=== PATIENT | female | born 1980 | race Two or more races ===

== ENCOUNTER 2016-10-28 13:16 | Emergency (ER) | payer OTHER ==
[2016-10-28 13:30] VITALS: BP 113/74; PULSE 75; TEMP 98; BMI 40.7
--- NOTE | 2016-10-28 13:30 | PDOC ---
History of Present Illness - General Chief Complaint: Ear Problem Stated Complaint: EAR PAIN Time Seen by Provider: 10/28/16 13:27 History Source: Patient Exam Limitations: No Limitations - History of Present Illness Initial Comments: CHIEF COMPLAINT: 36 y/o afebrile female with PMH seasonal allergies c/o right ear pain for over 2 weeks. HISTORY OF PRESENT ILLNESS: The patient states she saw her PCP on 10/14/16 with complaints of runny nose, watery eyes and right ear stuffiness. He prescribed her allergy medications (sudafed and claritin), which she was taking daily. She states all of her other symptoms have improved but her right ear pain has worsened and now behind her right ear hurts. She denies f/c, n/v/d, HARRIS, neck pain, discharge from right ear. Vital signs on arrival are within normal limits. REVIEW OF SYSTEMS: GENERAL/CONSTITUTIONAL: No fever/chills. No weakness. No weight change. HEAD, EYES, EARS, NOSE AND THROAT: No change in vision. +right ear pain. No sore throat. MUSCULOSKELETAL: No joint or muscle swelling or pain. No neck or back pain. SKIN: No rash or easy bruising. NEUROLOGIC: +right head pain. No headache, vertigo, loss of consciousness, or loss of sensation. PHYSICAL EXAM: GENERAL: The patient is awake, alert, and fully oriented, in no acute distress. She is well appearing and ambulatory. HEAD: Normal with no signs of trauma. Pain with palpation of right mastoid process EYES: Pupils equal, round and reactive to light, extraocular movements intact, sclera anicteric, conjunctiva clear. EARS: Canals and TMS normal b/l ears. No pain with manipulation of right tragus. No pre or post auricular lymphadenopathy. EXTREMITIES: Normal range of motion, no edema. NEUROLOGICAL: Normal speech, normal gait. SKIN: Warm, Dry, normal turgor, no rashes or lesions noted. Past History - Past Medical History Allergies/Adverse Reactions: Allergies Allergy/AdvReac Type Severity Reaction Status Date / Time shellfish derived Allergy Severe Swelling Verified 10/28/16 13:21 Home Medications: Ambulatory Orders Loratadine [Claritin] 10 mg PO PRN 10/28/16 Pseudoephedrine HCl [Nasal Decongestant] 30 mg PO PRN 10/28/16 Anemia: No Asthma: Yes Cancer: No Cardiac Disorders: No CVA: No COPD: No CHF: No Dementia: No Diabetes: No GI Disorders: No Disorders: No HTN: No Hypercholesterolemia: No Liver Disease: No Seizures: No Thyroid Disease: No - Reproductive History (#): 2 Para: 1 - Psycho/Social/Smoking Cessation Hx Anxiety: No Suicidal Ideation: No Smoking Status: No Smoking History: Never smoked Have you smoked in the past 12 months: No Number of Cigarettes Smoked Daily: 0 Information on smoking cessation initiated: No Hx Alcohol Use: No Drug/Substance Use Hx: No Substance Use Type: None Hx Substance Use Treatment: No *Physical Exam - Vital Signs Last Vital Signs Temp Pulse Resp BP Pulse Ox 98 F 75 18 113/74 100 10/28/16 13:21 10/28/16 13:21 10/28/16 13:21 10/28/16 13:21 10/28/16 13:21 Medical Decision Making - Medical Decision Making A/P: 36 y/o afebrile female with right ear pain and right mastoid tenderness. Plan is as follows: 1. hcg 2. CT of temporal bones hcg - negative CT scan of temporal bones IMPRESSION: Multiple right mastoid air cells at the tip of the mastoid are opacified. Intact septations. Intact cortex of the temporal bone no evidence of bony destructive changes. Intact cortex of right sigmoid sinus. Spoke with Dr. Tan and he would like to have basic labs drawn and he is going to examine the patient. Went to inform the patient of the plan and she was found to have left the ER. 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 Called the patient and left a voicemail for her to return to the ER as soon as possible. *DC/Admit/Observation/Transfer Diagnosis at time of Disposition: Earache on right - Discharge Dispostion Disposition: ELOPED Condition at time of disposition: Stable - Referrals Referrals: Billy Rivera MD [Primary Care Provider] -
== END 2016-10-28 15:55 | disposition home or self-care (01) ==
LOC: JERFT 13:16 → JER 13:16 → JERFT 15:55
DX: H92.01 Otalgia, right ear (principal); J30.2 Other seasonal allergic rhinitis
CPT/HCPCS: 70480-TC; 84703; 99281-25

== ENCOUNTER 2016-10-28 18:03 | Emergency (ER) | payer OTHER ==
[2016-10-28 18:09] VITALS: BP 112/71; PULSE 107; TEMP 97.9; BMI 40.7
--- NOTE | 2016-10-28 18:26 | PDOC ---
History of Present Illness - General Chief Complaint: Revisit,Radiology Variance Stated Complaint: EAR PROBLEM Time Seen by Provider: 10/28/16 18:17 History Source: Patient Exam Limitations: No Limitations - History of Present Illness Initial Comments: CHIEF COMPLAINT: 36 y/o afebrile female with PMH seasonal allergies c/o right ear pain for over 2 weeks. The patient was seen earlier today by myself and eloped. I called her back in and she is here for blood work to r/o leukocytosis. HISTORY OF PRESENT ILLNESS: The patient states she saw her PCP on 10/14/16 with complaints of runny nose, watery eyes and right ear stuffiness. He prescribed her allergy medications (sudafed and claritin), which she was taking daily. She states all of her other symptoms have improved but her right ear pain has worsened and now behind her right ear hurts. She denies f/c, n/v/d, HARRIS, neck pain, discharge from right ear. Vital signs on arrival are within normal limits. REVIEW OF SYSTEMS: GENERAL/CONSTITUTIONAL: No fever/chills. No weakness. No weight change. HEAD, EYES, EARS, NOSE AND THROAT: No change in vision. +right ear pain. No sore throat. MUSCULOSKELETAL: No joint or muscle swelling or pain. No neck or back pain. SKIN: No rash or easy bruising. NEUROLOGIC: +right head pain. No headache, vertigo, loss of consciousness, or loss of sensation. PHYSICAL EXAM: GENERAL: The patient is awake, alert, and fully oriented, in no acute distress. She is well appearing and ambulatory. HEAD: Normal with no signs of trauma. Pain with palpation of right mastoid process EYES: Pupils equal, round and reactive to light, extraocular movements intact, sclera anicteric, conjunctiva clear. EARS: Canals and TMS normal b/l ears. No pain with manipulation of right tragus. No pre or post auricular lymphadenopathy. EXTREMITIES: Normal range of motion, no edema. NEUROLOGICAL: Normal speech, normal gait. SKIN: Warm, Dry, normal turgor, no rashes or lesions noted. Past History - Past Medical History Allergies/Adverse Reactions: Allergies Allergy/AdvReac Type Severity Reaction Status Date / Time shellfish derived Allergy Severe Swelling Verified 10/28/16 18:07 Home Medications: Ambulatory Orders Amox-Tr/K Cl [Augmentin - 875Mg Tablet] 1 tab PO BID #20 tablet 10/28/16 Loratadine [Claritin] 10 mg PO PRN 10/28/16 Pseudoephedrine HCl [Nasal Decongestant] 30 mg PO PRN 10/28/16 Anemia: No Asthma: Yes Cancer: No Cardiac Disorders: No CVA: No COPD: No CHF: No Dementia: No Diabetes: No GI Disorders: No Disorders: No HTN: No Hypercholesterolemia: No Liver Disease: No Seizures: No Thyroid Disease: No - Reproductive History (#): 2 Para: 1 - Psycho/Social/Smoking Cessation Hx Anxiety: No Suicidal Ideation: No Smoking Status: No Smoking History: Never smoked Have you smoked in the past 12 months: No Number of Cigarettes Smoked Daily: 0 Information on smoking cessation initiated: No Hx Alcohol Use: No Drug/Substance Use Hx: No Substance Use Type: None Hx Substance Use Treatment: No *Physical Exam - Vital Signs Last Vital Signs Temp Pulse Resp BP Pulse Ox 97.9 F 107 H 18 112/71 100 10/28/16 18:07 10/28/16 18:07 10/28/16 18:07 10/28/16 18:07 10/28/16 18:07 ED Treatment Course - LABORATORY CBC & Chemistry Diagram: 10/28/16 18:17 Medical Decision Making - Medical Decision Making A/P: 36 y/o afebrile female returned after eloping before with right mastoid tenderness and earache. CT scan showed air cells in right mastoid region. Will do basic labs. If no leukocytosis will treat for otitis media. No leukocytosis. Discussed the case with Dr. Tan and he feels she can be treated outpatient for otitis media with close follow up. Informed the patient of the plan. Suggested she call Dr. Ruiz tomorrow to schedule follow up appointment, take entire course of Augmentin, and return to the ER immediately with any worsening or concerning symptoms, including fever, dizziness or worsening of pain. The patient verbalizes understanding of all instructions, has no further questions and is awaiting discharge. *DC/Admit/Observation/Transfer Diagnosis at time of Disposition: Otitis media Qualifiers: Otitis media type: suppurative Laterality: right Chronicity: acute Recurrence: not specified as recurrent Spontaneous tympanic membrane rupture: without spontaneous rupture Qualified Code(s): H66.001 - Acute suppurative otitis media without spontaneous rupture of ear drum, right ear Mastoid pain Qualifiers: Laterality: right Qualified Code(s): H92.01 - Otalgia, right ear - Discharge Dispostion Disposition: HOME Condition at time of disposition: Good - Prescriptions Prescriptions: Amox-Tr/K Cl [Augmentin - 875Mg Tablet] 1 tab PO BID #20 tablet - Referrals Referrals: Damian Rivera MD [Primary Care Provider] - Melecio Ruiz MD [Staff Physician] - Call tomorrow - Patient Instructions Printed Discharge Instructions: DI for Otitis Media (Middle Ear Infection)- Child Additional Instructions: Discharge Instructions: -Take antibiotics as prescribed and complete entire 10 days -Call Dr. Ruiz tomorrow to schedule follow up appointment -Return to the ER immediately if you experience any worsening or concerning symptoms, including fever, dizziness or worsening of pain.
[2016-10-28 18:55] LABS: BASOPHIL 0.5 % (0-2.0); EOSINOPHIL 2.5 % (0-4.5); MCH 29.8 pg (25.7-33.7); MCHC 33.5 g/dl (32.0-36.0); MEAN PLT VOLUME 7.8 fl (7.5-11.1); NEUTROPHILS 60.3 % (42.8-82.8); PLATELET COUNT 378 K/MM3 (134-434); RDW 13.1 % (11.6-15.6); WHITE BLOOD COUNT 8.3 K/mm3 (4.0-10.0)
[2016-10-28 19:29] LABS: ALBUMIN 3.9 g/dl (3.4-5.0); ALK PHOS 66 U/L (45-117); ANION GAP 11 (8-16); BILIRUBIN,TOTAL 0.3 mg/dL (0.2-1.0); CALCIUM 9.3 mg/dL (8.5-10.1); CO2 27 mmol/L (21-32); CREATININE 0.8 mg/dL (0.55-1.02); GLUCOSE,RANDOM 118 mg/dL (74-106); SGOT/AST 32 U/L (15-37); SGPT/ALT 49 U/L (12-78); TOT PROT 7.5 g/dl (6.4-8.2)
== END 2016-10-28 19:24 | disposition home or self-care (01) ==
LOC: JERFT 18:03
DX: H66.001 Acute suppurative otitis media without spontaneous rupture of ear drum, right ear (principal)
CPT/HCPCS: 36415; 80053; 85025; 99281-25

== ENCOUNTER 2017-02-27 15:20 | Emergency (ER) | payer OTHER ==
[2017-02-27 15:28] VITALS: TEMP 98.3; BMI 40.7
[2017-02-27] MEDS ORDERED: SODIUM CHLORIDE 0.9% 1000 ML INFUS.BAG IV ONE (16:13)
[2017-02-27 16:36] LABS: BASOPHIL 0.4 % (0-2.0); MCH 30.3 pg (25.7-33.7); MCHC 33.8 g/dl (32.0-36.0); MEAN CELL VOLUME 89.6 fl (80-96); MEAN PLT VOLUME 8.3 fl (7.5-11.1); NEUTROPHILS 85.3 % (42.8-82.8); PLATELET COUNT 375 K/MM3 (134-434); RDW 13.4 % (11.6-15.6); WHITE BLOOD COUNT 15.7 K/mm3 (4.0-10.0)
--- NOTE | 2017-02-27 16:46 | PDOC ---
Attending Attestation - Resident Resident Name: Dada Weir - HPI HPI: 02/27/17 16:44 36 yo female has c/o profuse watery diarrhea since 9:30 this morning. Denies vomiting or fever but has c/o chills. she denies any surgeries. Reviewing old chart found she had an ultrasound in past year that revealed cholelithiasis 02/27/17 21:58 - Physicial Exam PE: 02/27/17 16:46 overweight 36 yo female has epigastric discomfort and profuse watery stools today abd epigastric discomfort lungs cta b/l cvr [id number] extremities- from, no deformities,no edema neuro no gross focal neuro deficits 02/27/17 21:58 - Medical Decision Making 02/27/17 16:48 cbc,comp,lipase,ekg,imaging pending 02/27/17 21:37 Patient's chemistries are unremarkable. Abdominal ultrasound shows some cholelithiasis with possible sludge within the lumen of the gallbladder. This is a similar finding to the ultrasound she had previously. -STOOL sent for C. difficile 02/27/17 21:58 Patient states that she has not had any loose stool and carotid. She still has some mild epigastric discomfort and she is requesting Pepcid Plan patient will be discharged with Pepcid. Follow up with her pcp who is Dr. Godinez
--- NOTE | 2017-02-27 16:56 | PDOC ---
History of Present Illness - General Chief Complaint: Pain Stated Complaint: ABD PAIN Time Seen by Provider: 02/27/17 15:36 History Source: Patient Exam Limitations: No Limitations - History of Present Illness Initial Comments: 02/27/17 16:34 The patient is a 36F with a PMH of gallstones who presents to the ED with a 3 hour hx of diarrhea and abdominal pain. The patient states that she has had 15 episodes of watery, nonbloody diarrhea that is yellow colored since 1300 today. She states that she has taken 2 tums and this has not helped her pain. She has not had any sick contacts, no recent antibiotics, no recent travel. The abdominal pain is epigastric, radiates laterally b/l and to her chest. She describes it as sharp, dull, pressure, throbbing, and stabbing. Nothing makes it better or worse. She has no hx of colonscopies or EGDs. LMP: "December but it always skips" Soc: none Past History - Past Medical History Allergies/Adverse Reactions: Allergies Allergy/AdvReac Type Severity Reaction Status Date / Time shellfish derived Allergy Severe Swelling Verified 02/27/17 15:28 Home Medications: Ambulatory Orders Famotidine [Pepcid] 20 mg PO DAILY #14 tablet 02/27/17 Anemia: No Asthma: Yes Cancer: No Cardiac Disorders: No CVA: No COPD: No CHF: No Dementia: No Diabetes: No GI Disorders: No Disorders: No HTN: No Hypercholesterolemia: No Liver Disease: No Seizures: No Thyroid Disease: No - Reproductive History (#): 2 Para: 1 - Psycho/Social/Smoking Cessation Hx Anxiety: No Suicidal Ideation: No Smoking Status: No Smoking History: Never smoked Have you smoked in the past 12 months: No Number of Cigarettes Smoked Daily: 0 Hx Alcohol Use: No Drug/Substance Use Hx: No Substance Use Type: None Hx Substance Use Treatment: No Review of Systems - Review of Systems Able to Perform ROS?: Yes Is the patient limited Mohawk proficient: No Constitutional: Yes: Chills, Weakness. No: Fever Respiratory: Yes: Shortness of Breath. No: Cough, Wheezing, Productive cough Cardiac (ROS): Yes: Chest Pain ABD/GI: Yes: Diarrhea, Nausea, Other (abd pain). No: Vomiting : No: Burning, Dysuria, Discharge Neurological: Yes: Weakness. No: Headache, Numbness, Tingling *Physical Exam - Vital Signs Last Vital Signs Temp Pulse Resp BP Pulse Ox 98.3 F 100 H 20 139/62 97 02/27/17 15:26 02/27/17 15:26 02/27/17 15:26 02/27/17 15:26 02/27/17 15:26 - Physical Exam General Appearance: Yes: Nourished, Obese HEENT: positive: Normal Voice, Hearing Grossly Normal Respiratory/Chest: positive: Lungs Clear, Normal Breath Sounds. negative: Chest Tender, Respiratory Distress, Crackles, Rales, Rhonchi, Stridor, Wheezing Cardiovascular: positive: Regular Rhythm, Regular Rate, S1, S2. negative: Diastolic Murmur, Systolic Murmur Gastrointestinal/Abdominal: positive: Normal Bowel Sounds, Flat, Soft. negative : Tender, Protuberent, Distended, Guarding, Rebound, Tenderness Musculoskeletal: negative: CVA Tenderness (R), CVA Tenderness (L) Extremity: positive: Normal Inspection. negative: Coldness, Cyanosis, Swelling , Calf Tenderness Integumentary: positive: Dry, Warm. negative: Clammy, Diaphoresis, Ecchymosis Neurologic: positive: Fully Oriented, Alert, Normal Mood/Affect, Motor Strength 11/05 ED Treatment Course - LABORATORY CBC & Chemistry Diagram: 02/27/17 16:15 02/27/17 16:15 - Medications Given in the ED: ED Medications Discontinued Medications Generic Name Dose Route Start Last Admin Trade Name Freq PRN Reason Stop Dose Admin Sodium Chloride 1,000 ml 02/27/17 16:13 02/27/17 16:24 Normal Saline - IV 02/27/17 16:14 1,000 ml ONCE ONE Administration Medical Decision Making - Medical Decision Making 02/27/17 17:01 The patient is a 36F with a PMH of gallstones who presents with 3 hours of watery diarrhea, nausea, and abdominal pain. I have ordered labs to r/o a systemic infection and . I will reassess the patient when these labs return. 02/27/17 17:50 Labs showing WBC 15.7. Pending UA. 02/27/17 18:54 Patient signed out to the night team, Dr. Tejada. *DC/Admit/Observation/Transfer Diagnosis at time of Disposition: Epigastric pain Diarrhea Qualifiers: Diarrhea type: unspecified type Qualified Code(s): R19.7 - Diarrhea, unspecified - Discharge Dispostion Disposition: HOME Condition at time of disposition: Stable - Prescriptions Prescriptions: Famotidine [Pepcid] 20 mg PO DAILY #14 tablet - Referrals Referrals: Damian Rivera MD [Primary Care Provider] - - Patient Instructions Printed Discharge Instructions: DI for Diarrhea and Traveler's Diarrhea -- Adult, DI for Epigastric Pain Additional Instructions: PLEASE FOLLOWUP WITH YOUR REGULAR PHYSICIAN AND TAKE YOUR LAB RESULTS WITH YOU WHEN YOU GO TO THE OFFICE TAKE THE PEPCID PRESCRIBED RETURN IF YOU DEVELOP ANY WORSENING SYMPTOMS
[2017-02-27 17:02] LABS: ALBUMIN 4.1 g/dl (3.4-5.0); ANION GAP 9 (8-16); BILIRUBIN,TOTAL 0.4 mg/dL (0.2-1.0); CALCIUM 8.7 mg/dL (8.5-10.1); CO2 29 mmol/L (21-32); CREATININE 0.7 mg/dL (0.55-1.02); SGOT/AST 26 U/L (15-37); SGPT/ALT 54 U/L (12-78); TOT PROT 8.1 g/dl (6.4-8.2)
[2017-02-27 17:04] LABS: ALK PHOS 68 U/L (45-117)
[2017-02-27 17:07] LABS: GLUCOSE,RANDOM 82 mg/dL (74-106)
[2017-02-27 18:34] LABS: URINE APPEARANCE SLCLOUDY; URINE BILIRUBIN NEGATIVE (NEGATIVE); URINE BLOOD 2+ (NEGATIVE); URINE COLOR YELLOW; URINE GLUCOSE (UA) NEGATIVE (NEGATIVE); URINE KETONE NEGATIVE (NEGATIVE); URINE LEUK ESTERASE NEGATIVE (NEGATIVE); URINE NITRITE NEGATIVE (NEGATIVE); URINE PROTEIN NEGATIVE (NEGATIVE); URINE UROBILINOGEN NEGATIVE mg/dL (0.2-1.0)
[2017-02-27] MEDS ORDERED: FAMOTIDINE 20 MG/50 ML IVPB 50 ML IVPB ONE ×2 (21:58→22:01)
--- NOTE | 2017-02-27 22:07 | PDOC ---
*Physical Exam - Vital Signs Last Vital Signs Temp Pulse Resp BP Pulse Ox 98.3 F 100 H 20 139/62 97 02/27/17 15:26 02/27/17 15:26 02/27/17 15:26 02/27/17 15:26 02/27/17 15:26 ED Treatment Course - LABORATORY CBC & Chemistry Diagram: 02/27/17 16:15 02/27/17 16:15 - ADDITIONAL ORDERS Additional order review: Laboratory Results 02/27/17 02/27/17 02/27/17 16:21 16:20 16:15 Sodium 138 Potassium 3.9 Chloride 100 Carbon Dioxide 29 Anion Gap 9 BUN 12 Creatinine 0.7 Creat Clearance w eGFR > 60 Random Glucose 82 D Calcium 8.7 Total Bilirubin 0.4 D AST 26 ALT 54 Alkaline Phosphatase 68 Total Protein 8.1 Albumin 4.1 Lipase 180 Beta HCG, Quant < 1.0 Serum , Qual Negative Urine Color Yellow Urine Appearance Slcloudy Urine pH 5.0 Urine Protein Negative Urine Glucose (UA) Negative Urine Ketones Negative Urine Blood 2+ H Urine Nitrite Negative Urine Bilirubin Negative Urine Urobilinogen Negative Ur Leukocyte Esterase Negative 02/27/17 16:15 RBC 4.73 MCV 89.6 MCHC 33.8 RDW 13.4 MPV 8.3 Neutrophils % 85.3 H D Lymphocytes % 7.6 L D Monocytes % 5.7 Eosinophils % 1.0 Basophils % 0.4 - Medications Given in the ED: ED Medications Discontinued Medications Generic Name Dose Route Start Last Admin Trade Name Freq PRN Reason Stop Dose Admin Sodium Chloride 1,000 ml 02/27/17 16:13 02/27/17 16:24 Normal Saline - IV 02/27/17 16:14 1,000 ml ONCE ONE Administration *DC/Admit/Observation/Transfer Diagnosis at time of Disposition: Epigastric pain Diarrhea Qualifiers: Diarrhea type: unspecified type Qualified Code(s): R19.7 - Diarrhea, unspecified - Discharge Dispostion Disposition: HOME Condition at time of disposition: Stable - Prescriptions Prescriptions: Famotidine [Pepcid] 20 mg PO DAILY #14 tablet - Referrals Referrals: Damian Rivera MD [Primary Care Provider] - - Patient Instructions Printed Discharge Instructions: DI for Diarrhea and Traveler's Diarrhea -- Adult, DI for Epigastric Pain Additional Instructions: PLEASE FOLLOWUP WITH YOUR REGULAR PHYSICIAN AND TAKE YOUR LAB RESULTS WITH YOU WHEN YOU GO TO THE OFFICE TAKE THE PEPCID PRESCRIBED RETURN IF YOU DEVELOP ANY WORSENING SYMPTOMS
[2017-02-27 22:08] VITALS: BP 104/53; PULSE 82
--- NOTE | 2017-02-28 19:02 | EKG ---
Test Reason : Blood Pressure : / mmHG Vent. Rate : 092 BPM Atrial Rate : 092 BPM P-R Int : 162 ms QRS Dur : 090 ms QT Int : 364 ms P-R-T Axes : 051 036 016 degrees QTc Int : 450 ms NORMAL SINUS RHYTHM NORMAL ECG WHEN COMPARED WITH ECG OF 02-OCT-2005 21:33, NO SIGNIFICANT CHANGE WAS FOUND Confirmed by AMBER THIBODEAUX MD ([id number]) on 02/28/2017 7:02:02 PM Referred By: Confirmed By:AMBER THIBODEAUX MD
== END 2017-02-27 23:05 | disposition home or self-care (01) ==
LOC: JER 15:20
PROC: 3E033GC Introduction of Other Therapeutic Substance into Peripheral Vein, Percutaneous Approach (ICD-10-PCS; principal; 2017-02-27)
DX: R10.13 Epigastric pain (principal); R19.7 Diarrhea, unspecified
CPT/HCPCS: 36415; 76705-TC; 80053; 81003; 81015; 83690; 84702; 84703; 85025; 87324; 87449; 93005; 93010; 96365; 99283-25

== ENCOUNTER 2017-07-16 23:04 | Emergency (ER) | payer OTHER | END 2017-07-17 01:00 | disposition left against medical advice (07) | LOC: JER 23:04 | DX: Z53.21 Procedure and treatment not carried out due to patient leaving prior to being seen by health care provider (principal) | CPT/HCPCS: 99281-25 ==

== ENCOUNTER 2017-09-21 03:39 | Emergency (ER) | payer OTHER ==
[2017-09-21] MEDS ORDERED: AMOX TR/POT CLAV 875MG/125MG TABLETS (FP) PO STA (05:27)
--- NOTE | 2017-09-21 05:27 | PDOC ---
History of Present Illness - General History Source: Patient <MayraBeltran - Last Filed: 09/21/17 05:29> - General History Source: Patient Exam Limitations: No Limitations - History of Present Illness Initial Comments: 09/21/17 05:32 The patient is a 37 year old female with a significant PMH of asthma who presents to the emergency department with a sore throat beginning approximately 2 days ago. The patient notes that all 3 of her kids have been diagnosed with strep throat recently. The patient denies taking any medications for her sore throat. The patient denies chest pain, shortness of breath, headache and dizziness. Denies fever, chills, nausea, vomit, diarrhea and constipation. Denies dysuria, frequency, urgency and hematuria. Allergies: NKDA Past surgical history: Cervical scraping. Social history: No reported cigarette, alcohol, or drug use. PCP: Dr. Damian Rivera <Sebastian Barclay - Last Filed: 09/21/17 05:32> - General Chief Complaint: Sore Throat Stated Complaint: THROAT PAIN Time Seen by Provider: 09/21/17 05:26 Past History - Past Medical History Anemia: No Asthma: Yes Cancer: No Cardiac Disorders: No CVA: No COPD: No CHF: No DVT: No Dementia: No Diabetes: No GI Disorders: Yes (gallstones) Disorders: No HTN: No Hypercholesterolemia: No Liver Disease: No Seizures: No Thyroid Disease: No - Reproductive History (#): 2 Para: 1 - Suicide/Smoking/Psychosocial Hx Smoking Status: No Smoking History: Never smoked Have you smoked in the past 12 months: No Number of Cigarettes Smoked Daily: 0 Hx Alcohol Use: No Drug/Substance Use Hx: No Substance Use Type: None Hx Substance Use Treatment: No <Beltran Nunez - Last Filed: 09/21/17 05:29> <Sebastian Barclay - Last Filed: 09/21/17 05:32> - Past Medical History Allergies/Adverse Reactions: Allergies Allergy/AdvReac Type Severity Reaction Status Date / Time shellfish derived Allergy Severe Swelling Verified 05/27/17 22:52 Home Medications: Ambulatory Orders Amox-Tr/K Cl [Augmentin 875Mg Tablet] 1 tab PO BID #20 tablet 09/21/17 Ibuprofen 800 mg PO TID #30 tablet 09/21/17 Review of Systems - Review of Systems Able to Perform ROS?: Yes Comments:: 09/21/17 05:32 CONSTITUTIONAL: Absent: fever, chills, diaphoresis, generalized weakness, malaise, loss of appetite HEENT: (+) Sore throat. Absent: rhinorrhea, nasal congestion,, difficulty swallowing, mouth swelling, ear pain, eye pain, visual Changes CARDIOVASCULAR: Absent: chest pain, syncope, palpitations, irregular heart rate, lightheadedness , peripheral edema RESPIRATORY: Absent: cough, shortness of breath, dyspnea with exertion, orthopnea, wheezing, stridor, hemoptysis GASTROINTESTINAL: Absent: abdominal pain, abdominal distension, nausea, vomiting, diarrhea, constipation, melena, hematochezia GENITOURINARY: Absent: dysuria, frequency, urgency, hesitancy, hematuria, flank pain, genital pain MUSCULOSKELETAL: Absent: myalgia, arthralgia, joint swelling SKIN: Absent: rash, itching, pallor HEMATOLOGIC/IMMUNOLOGIC: Absent: easy bleeding, easy bruising, lymphadenopathy, frequent infections ENDOCRINE: Absent: unexplained weight gain, unexplained weight loss, heat intolerance, cold intolerance NEUROLOGIC: Absent: headache, focal weakness or paresthesias, dizziness, unsteady gait, seizure, mental status changes, bladder or bowel incontinence PSYCHIATRIC: Absent: anxiety, depression, suicidal or homicidal ideation, hallucinations. <Sebastian Barclay - Last Filed: 09/21/17 05:32> *Physical Exam - Vital Signs Last Vital Signs Temp Pulse Resp BP Pulse Ox 97.5 F L 72 18 114/84 99 09/21/17 05:17 09/21/17 05:17 09/21/17 05:17 09/21/17 05:17 09/21/17 05:17 <Beltran Nunez - Last Filed: 09/21/17 05:29> - Vital Signs Last Vital Signs Temp Pulse Resp BP Pulse Ox 97.5 F L 72 18 114/84 99 09/21/17 05:17 09/21/17 05:17 09/21/17 05:17 09/21/17 05:17 09/21/17 05:17 - Physical Exam Comments: 09/21/17 05:32 GENERAL: Well developed, well nourished. Awake and alert. No acute distress. HEENT: (+) Oropharynx slightly erythematous, no exudates. Normocephalic, atraumatic. PERRLA, EOMI. No conjunctival pallor. Sclera are non- icteric. Moist mucous membranes. NECK: Supple. Full ROM. No JVD. Carotid pulses 2+ and symmetric, without bruits. No thyromegaly. No lymphadenopathy. CARDIOVASCULAR: Regular rate and rhythm. No murmurs, rubs, or gallops. Distal pulses are 2+ and symmetric. PULMONARY: No evidence of respiratory distress. Lungs clear to auscultation bilaterally. No wheezing, rales or rhonchi. ABDOMINAL: Soft. Non-tender. Non-distended. No rebound or guarding. No organomegaly. Normoactive bowel sounds. MUSCULOSKELETAL Normal range of motion at all joints. No bony deformities or tenderness. No CVA tenderness. EXTREMITIES: No cyanosis. No clubbing. No edema. No calf tenderness. SKIN: Warm and dry. Normal capillary refill. No rashes. No jaundice. NEUROLOGICAL: Alert, awake, appropriate. Cranial nerves 2-12 intact. No deficits to light touch and temperature in face, upper extremities and lower extremities. No motor deficits in the in face, upper extremities and lower extremities. Normoreflexic in the upper and lower extremities. Normal speech. Toes are downgoing bilaterally. Gait is normal without ataxia. PSYCHIATRIC: Cooperative. Good eye contact. Appropriate mood and affect. <Sebastian Barclay - Last Filed: 09/21/17 05:32> Medical Decision Making - Medical Decision Making 09/21/17 05:30 Dr. Nunez: The scribe's documentation has been prepared under my direction and personally reviewed by me in its entirery. I confirm that the note above accurately reflects all work, treatment, procedures, and medical decision making performed by me. <Beltran Nunez - Last Filed: 09/21/17 05:29> *DC/Admit/Observation/Transfer - Discharge Dispostion Admit: No <Beltran Nunez - Last Filed: 09/21/17 05:29> - Attestations Scribe Attestion: 09/21/17 05:32 Documentation prepared by Sebastian Barclay, acting as medical sales for Beltran Nunez DO. <Sebastian Barclay - Last Filed: 09/21/17 05:32> Diagnosis at time of Disposition: Acute pharyngitis Qualifiers: Pharyngitis/tonsillitis etiology: unspecified etiology Qualified Code(s): J02.9 - Acute pharyngitis, unspecified - Discharge Dispostion Disposition: HOME Condition at time of disposition: Stable - Prescriptions Prescriptions: Amox-Tr/K Cl [Augmentin 875Mg Tablet] 1 tab PO BID #20 tablet Ibuprofen 800 mg PO TID #30 tablet - Referrals Referrals: Damian Rivera MD [Primary Care Provider] - - Patient Instructions Printed Discharge Instructions: DI for Pharyngitis/Tonsillopharyngitis -- Adult Additional Instructions: take medication as directed. Follow up with your doctor in two days - Post Discharge Activity Forms/Work/School Notes: Back to Work
[2017-09-21] MEDS ORDERED: IBUPROFEN 400 MG TABLET (FP) PO ONE ×2 (05:28→05:39)
[2017-09-21 05:36] VITALS: BP 114/84; PULSE 72; TEMP 97.5; BMI 40.7
== END 2017-09-21 05:56 | disposition home or self-care (01) ==
LOC: JER 03:39
DX: J02.9 Acute pharyngitis, unspecified (principal); J45.909 Unspecified asthma, uncomplicated
CPT/HCPCS: 99281-25

== ENCOUNTER 2018-02-06 22:04 | Emergency (ER) | payer OTHER ==
[2018-02-06 22:13] VITALS: BP 127/76; PULSE 78; TEMP 98; BMI 40.7
--- NOTE | 2018-02-07 00:04 | PDOC ---
History of Present Illness - General Chief Complaint: Pain, Acute Stated Complaint: PINCHED NERVE Time Seen by Provider: 02/06/18 23:24 History Source: Patient Exam Limitations: No Limitations - History of Present Illness Initial Comments: 02/06/18 23:59 Best Contact: PCP: Dr. Gaviota Hein Pmhx: Gallstones Pshx:0 Allergies:0 FH:0 Social Hx: Cigarettes/ 0 Alcohol/ 0 Drugs/0 LMP:01/15/2018 37-year-old female presents to the ER complaining of left-sided neck pain after lifting heavy bags this evening. Patient states the pain is described as 4/10 pain shooting discomfort to the posterior left neck radiating to her left shoulder. Pain is exacerbated when touching the posterior left neck and shoulder and alleviated at rest. Patient states she felt acute pinch when lifting heavy laundry. Patient took 600 mg of ibuprofen approximately 2100 hrs. this evening with some relief. Patient denies any fall or trauma. Patient states the pain is slowly alleviating as time progresses. Patient states she adamantly refuses any pain medication Past History - Past Medical History Allergies/Adverse Reactions: Allergies Allergy/AdvReac Type Severity Reaction Status Date / Time shellfish derived Allergy Severe Swelling Verified 02/06/18 22:12 Home Medications: Ambulatory Orders Amox-Tr/K Cl [Augmentin 875Mg Tablet] 1 tab PO BID #20 tablet 09/21/17 Ibuprofen 800 mg PO TID #30 tablet 09/21/17 Anemia: No Asthma: Yes Cancer: No Cardiac Disorders: No CVA: No COPD: No CHF: No DVT: No Dementia: No Diabetes: No GI Disorders: Yes (gallstones) Disorders: No HTN: No Hypercholesterolemia: No Liver Disease: No Seizures: No Thyroid Disease: No - Reproductive History (#): 2 Para: 1 - Suicide/Smoking/Psychosocial Hx Smoking Status: No Smoking History: Never smoked Have you smoked in the past 12 months: No Number of Cigarettes Smoked Daily: 0 Hx Alcohol Use: No Drug/Substance Use Hx: No Substance Use Type: None Hx Substance Use Treatment: No Review of Systems - Review of Systems Able to Perform ROS?: Yes Comments:: 02/07/18 00:01 CONSTITUTIONAL: Absent: fever, chills, diaphoresis, generalized weakness, malaise, loss of appetite HEENT: +Posterior left neck pain/left shoulder Absent: rhinorrhea, nasal congestion, throat pain, throat swelling, difficulty swallowing, mouth swelling, ear pain, eye pain, visual Changes CARDIOVASCULAR: Absent: chest pain, loss of consciousness, palpitations, irregular heart rate, peripheral edema RESPIRATORY: Absent: cough, shortness of breath, dyspnea with exertion, orthopnea, wheezing, stridor, hemoptysis GASTROINTESTINAL: Absent: abdominal pain, abdominal distension, nausea, vomiting, diarrhea, constipation, melena, hematochezia GENITOURINARY: Absent: dysuria, frequency, urgency, hesitancy, hematuria, flank pain, genital pain MUSCULOSKELETAL: Absent: myalgia, arthralgia, joint swelling SKIN: Absent: rash, itching, pallor HEMATOLOGIC/IMMUNOLOGIC: Absent: easy bleeding, easy bruising, lymphadenopathy, frequent infections ENDOCRINE: Absent: unexplained weight gain, unexplained weight loss, heat intolerance, cold intolerance NEUROLOGIC: Absent: headache, focal weakness or paresthesias, dizziness, unsteady gait, seizure, mental status changes, bladder or bowel incontinence PSYCHIATRIC: Absent: anxiety, depression, suicidal or homicidal ideation, hallucinations. Is the patient limited German proficient: No *Physical Exam - Vital Signs Last Vital Signs Temp Pulse Resp BP Pulse Ox 98.0 F 78 18 127/76 100 02/06/18 22:11 02/06/18 22:11 02/06/18 22:11 02/06/18 22:11 02/06/18 22:11 - Physical Exam Comments: 02/07/18 00:02 GENERAL: Well developed, well nourished. Awake and alert. No acute distress. HEENT: Normocephalic, atraumatic. PERRLA, EOMI. No conjunctival pallor. Sclera are non- icteric. Moist mucous membranes. Oropharynx is clear. NECK: Supple. Full ROM. No JVD. Carotid pulses 2+ and symmetric, without bruits. No thyromegaly. No lymphadenopathy. CARDIOVASCULAR: Regular rate and rhythm. No murmurs, rubs, or gallops. Distal pulses are 2+ and symmetric. PULMONARY: No evidence of respiratory distress. Lungs clear to auscultation bilaterally. No wheezing, rales or rhonchi. ABDOMINAL: Soft. Non-tender. Non-distended. No rebound or guarding. No organomegaly. Normoactive bowel sounds. MUSCULOSKELETAL Normal range of motion at all joints. No bony deformities or tenderness. No CVA tenderness. EXTREMITIES: B/L Upper extremity: strength 5+/5 No cyanosis. No clubbing. No edema. No calf tenderness. SKIN: Warm and dry. Normal capillary refill. No rashes. No jaundice. NEUROLOGICAL: Alert, awake, appropriate. Cranial nerves 2-12 intact. No deficits to light touch and temperature in face, upper extremities and lower extremities. No motor deficits in the in face, upper extremities and lower extremities. Normoreflexic in the upper and lower extremities. Normal speech. Toes are down- going bilaterally. Gait is normal without ataxia. PSYCHIATRIC: Cooperative. Good eye contact. Appropriate mood and affect. *DC/Admit/Observation/Transfer Diagnosis at time of Disposition: Neck muscle strain Qualifiers: Encounter type: initial encounter Qualified Code(s): S16.1XXA - Strain of muscle, fascia and tendon at neck level, initial encounter - Discharge Dispostion Disposition: HOME Condition at time of disposition: Stable Decision to Admit order: No - Referrals Referrals: Damian Rivera MD [Primary Care Provider] - Freddy Steinberg MD, FAANS [Staff Physician] - - Patient Instructions Printed Discharge Instructions: DI for Neck Sprain Additional Instructions: Ice; 20 mins on alternating with 20 mins off for 48 hours while awake. Rest Follow up with the neurosurgeon listed on the discharge form. Return to the ER for severe/persistent/worsening symptoms, extremity numbness/ tingling sensation. - Post Discharge Activity
== END 2018-02-07 00:43 | disposition home or self-care (01) ==
LOC: JERFT 22:04
DX: S16.1XXA Strain of muscle, fascia and tendon at neck level, initial encounter (principal); X58.XXXA Exposure to other specified factors, initial encounter; Y93.89 Activity, other specified; Y92.9 Unspecified place or not applicable; Y99.0 Civilian activity done for income or pay; J45.909 Unspecified asthma, uncomplicated
CPT/HCPCS: 99281-25

== ENCOUNTER 2018-04-01 14:46 | Emergency (ER) | payer OTHER ==
[2018-04-01 14:52] VITALS: TEMP 98.4; BMI 40.7
--- NOTE | 2018-04-01 15:55 | PDOC ---
History of Present Illness - General Chief Complaint: Pain Stated Complaint: PAIN Time Seen by Provider: 04/01/18 15:29 History Source: Patient - History of Present Illness Timing/Duration: reports: intermittent Past History - Past Medical History Allergies/Adverse Reactions: Allergies Allergy/AdvReac Type Severity Reaction Status Date / Time shellfish derived Allergy Severe Swelling Verified 04/01/18 14:47 Home Medications: Ambulatory Orders NK [No Known Home Medication] 04/01/18 Anemia: No Asthma: Yes Cancer: No Cardiac Disorders: No CVA: No COPD: No CHF: No DVT: No Dementia: No Diabetes: No GI Disorders: Yes (gallstones) Disorders: No HTN: No Hypercholesterolemia: No Liver Disease: No (fatty liver) Seizures: No Thyroid Disease: No - Reproductive History (#): 2 Para: 1 Cervical CA: No Dysfunctional Uterine Bleeding: No Ectopic : No Endometrial CA: No Polycystic Ovaries: No Therapeutic (s) & number: No Tubal Ligation: No - Suicide/Smoking/Psychosocial Hx Smoking Status: No Smoking History: Never smoked Have you smoked in the past 12 months: No Number of Cigarettes Smoked Daily: 0 Information on smoking cessation initiated: No Hx Alcohol Use: No Drug/Substance Use Hx: No Substance Use Type: None Hx Substance Use Treatment: No Review of Systems - Review of Systems Constitutional: No: Chills, Fever ABD/GI: No: Nausea, Vomiting : Yes: Dysuria, Frequency. No: Discharge, Flank Pain, Hematuria *Physical Exam - Vital Signs Last Vital Signs Temp Pulse Resp BP Pulse Ox 98.4 F 88 18 108/71 100 04/01/18 14:49 04/01/18 14:49 04/01/18 14:49 04/01/18 14:49 04/01/18 14:49 - Physical Exam General Appearance: Yes: Appropriately Dressed. No: Apparent Distress HEENT: positive: Normal Voice Neck: positive: Supple Respiratory/Chest: negative: Respiratory Distress Female Pelvic Exam: positive: normal external exam, normal adnexa. negative: CMT, discharge, adnexal tenderness, vaginal bleeding Gastrointestinal/Abdominal: positive: Tender (minimal poorly localized ttp to lower abd, NT over mcburney, neg CVAT), Soft. negative: Distended Musculoskeletal: negative: CVA Tenderness Integumentary: positive: Dry, Warm Neurologic: positive: Fully Oriented, Alert, Normal Mood/Affect ED Treatment Course - LABORATORY CBC & Chemistry Diagram: 04/01/18 16:00 04/01/18 16:00 Medical Decision Making - Medical Decision Making 04/01/18 15:52 37-year-old morbidly obese female, denies any past medical history, here with lower abd discomfort with ? dysuria and urinary frequency 2 weeks. No hematuria, flank pain, nausea, vomiting, fever or chills. Last time had a UTI was several years ago. No history of kidney stones. Denies any vaginal discharge, foul odor or itching. No history of STDs. Currently with long time partner. Patient reports that 2 weeks ago when symptoms started, her coworker checked her vitals which were normal. Was also ruled out for . States urine at that time showed some blood. Not currently on antibiotics See exam R/o UTI, unlikely PID or torsion and no ttp over mcburneys to suggest appy, neg preg test last week -No e/o pyelo -ua/cx 04/01/18 16:09 UA neg for nit/LE. Will get basic labs and pelvic US at this time 04/01/18 18:59 Labs wnl. Pt signed out to ERNESTO Muñiz pending US read *DC/Admit/Observation/Transfer Diagnosis at time of Disposition: Dysuria - Discharge Dispostion Disposition: HOME Condition at time of disposition: Good - Referrals Referrals: La Nena Grande MD [Staff Physician] - Damian Rivera MD [Primary Care Provider] - - Patient Instructions Printed Discharge Instructions: DI for Dysuria -- Adult Additional Instructions: Follow up with your shop director Pelvic rest Return to the ER for severe/persistent/worsening symptoms - Post Discharge Activity
[2018-04-01 16:01] LABS: URINE APPEARANCE CLEAR; URINE BILIRUBIN NEGATIVE (<2.0 mg/dL); URINE COLOR STRAW; URINE GLUCOSE (UA) NEGATIVE (NEGATIVE); URINE KETONE NEGATIVE (NEGATIVE); URINE LEUK ESTERASE NEGATIVE (NEGATIVE); URINE NITRITE NEGATIVE (NEGATIVE); URINE PROTEIN NEGATIVE (NEGATIVE); URINE UROBILINOGEN NEGATIVE mg/dL (0.2-1.0)
[2018-04-01 16:18] LABS: BASO % 0.9 % (0-2.0); EOS % 1.5 % (0-4.5); HEMATOCRIT 39.8 % (32.4-45.2); HEMOGLOBIN 13.6 GM/dL (10.7-15.3); LYMPH % 28.3 % (8-40); MCH 30.3 pg (25.7-33.7); MCHC 34.1 g/dl (32.0-36.0); MEAN CELL VOLUME 88.9 fl (80-96); MEAN PLT VOLUME 7.8 fl (7.5-11.1); MONO % 8.4 % (3.8-10.2); NEUT % 60.9 % (42.8-82.8); PLATELET COUNT 375 K/MM3 (134-434); RBC 4.47 M/mm3 (3.60-5.2); RDW 13.3 % (11.6-15.6); WHITE BLOOD COUNT 10.1 K/mm3 (4.0-10.0)
[2018-04-01 16:32] LABS: HCG,QUALITATIVE URINE Negative
[2018-04-01 16:45] LABS: ALBUMIN 3.8 g/dl (3.4-5.0); ALK PHOS 60 U/L (45-117); ANION GAP 11 MMOL/L (8-16); BILIRUBIN,TOTAL 0.3 mg/dL (0.2-1); BLOOD UREA NITROGEN 15 mg/dL (7-18); CALCIUM 9.9 mg/dL (8.5-10.1); CHLORIDE 103 mmol/L (98-107); CO2 24 mmol/L (21-32); CREATININE 0.8 mg/dL (0.55-1.3); GLUCOSE,RANDOM 88 mg/dL (74-106); SGOT/AST 25 U/L (15-37); SGPT/ALT 46 U/L (13-61); SODIUM 139 mmol/L (136-145)
[2018-04-01 16:45] LABS: EPI CELLS RARE /HPF (FEW); URINE BACTERIA RARE /hpf (NONE SEEN)
[2018-04-01 17:28] VITALS: BP 133/81; PULSE 79
--- NOTE | 2018-04-01 21:27 | PDOC ---
*Physical Exam - Vital Signs Last Vital Signs Temp Pulse Resp BP Pulse Ox 98.4 F 79 18 133/81 100 04/01/18 17:28 04/01/18 17:28 04/01/18 17:28 04/01/18 17:28 04/01/18 17:28 ED Treatment Course - LABORATORY CBC & Chemistry Diagram: 04/01/18 16:00 04/01/18 16:00 - ADDITIONAL ORDERS Additional order review: Laboratory Results 04/01/18 04/01/18 16:00 15:40 Sodium 139 Potassium 4.0 Chloride 103 Carbon Dioxide 24 Anion Gap 11 BUN 15 Creatinine 0.8 Creat Clearance w eGFR > 60 Random Glucose 88 Calcium 9.9 Total Bilirubin 0.3 AST 25 ALT 46 Alkaline Phosphatase 60 Total Protein 8.0 Albumin 3.8 Urine Color Straw Urine Appearance Clear Urine pH 6.0 Ur Specific [place] 1.006 Urine Protein Negative Urine Glucose (UA) Negative Urine Ketones Negative Urine Blood 1+ H Urine Nitrite Negative Urine Bilirubin Negative Urine Urobilinogen Negative Ur Leukocyte Esterase Negative Urine WBC (Auto) None Urine RBC (Auto) 1 Ur Epithelial Cells Rare Urine Bacteria Rare Urine HCG, Qual Negative 04/01/18 16:00 RBC 4.47 MCV 88.9 MCHC 34.1 RDW 13.3 MPV 7.8 Neutrophils % 60.9 D Lymphocytes % 28.3 D Monocytes % 8.4 D Eosinophils % 1.5 D Basophils % 0.9 D Progress Note - Progress Note Progress Note: Delayed due to imaging arson investigator preliminary results *DC/Admit/Observation/Transfer Diagnosis at time of Disposition: Dysuria - Discharge Dispostion Disposition: HOME Condition at time of disposition: Good Decision to Admit order: No - Referrals Referrals: Damian Rivera MD [Primary Care Provider] - La Nena Grande MD [Staff Physician] - - Patient Instructions Printed Discharge Instructions: DI for Dysuria -- Adult Additional Instructions: Follow up with your elocution teacher Pelvic rest Return to the ER for severe/persistent/worsening symptoms - Post Discharge Activity
== END 2018-04-01 21:35 | disposition home or self-care (01) ==
LOC: JER 14:46
DX: R30.0 Dysuria (principal)
CPT/HCPCS: 36415; 76830-TC; 76856-TC; 80053; 81003; 81015; 84703; 85025; 87086; 87491; 87591; 99284-25

== ENCOUNTER 2018-11-10 10:09 | Emergency (ER) | payer OTHER ==
[2018-11-10 10:15] VITALS: BMI 38.0
[2018-11-10] MEDS ORDERED: MAG HYDROX/AL HYDROX/SIMETH 30 ML UNIT-DOSE CUP PO ONE (10:43)
[2018-11-10] MEDS ORDERED: ONDANSETRON *ODT* 4 MG TABLET SL ONE (10:43)
[2018-11-10] MEDS ORDERED: ONDANSETRON *ODT* 4 MG TABLET ONE (10:49)
[2018-11-10] MEDS ORDERED: MAG HYDROX/AL HYDROX/SIMETH 30 ML UNIT-DOSE CUP ONE (10:49)
[2018-11-10 11:13] LABS: BASO % 0.5 % (0-2.0); EOS % 1.6 % (0-4.5); HEMATOCRIT 42.4 % (32.4-45.2); HEMOGLOBIN 14.1 GM/dL (10.7-15.3); LYMPH % 22.2 % (8-40); MCHC 33.2 g/dl (32.0-36.0); MEAN CELL VOLUME 90.2 fl (80-96); MEAN PLT VOLUME 7.9 fl (7.5-11.1); MONO % 6.6 % (3.8-10.2); NEUT % 69.1 % (42.8-82.8); PLATELET COUNT 355 K/MM3 (134-434); RBC 4.69 M/mm3 (3.60-5.2); RDW 13.6 % (11.6-15.6); WHITE BLOOD COUNT 7.8 K/mm3 (4.0-10.0)
[2018-11-10 11:36] LABS: BILIRUBIN,TOTAL 0.4 mg/dL (0.2-1); CALCIUM 10.3 mg/dL (8.5-10.1); CREATININE 0.7 mg/dL (0.55-1.3); POTASSIUM 4.4 mmol/L (3.5-5.1); TOT PROT 7.7 g/dl (6.4-8.2)
--- NOTE | 2018-11-10 12:09 | PDOC ---
History of Present Illness - General Chief Complaint: Pain Stated Complaint: abd pain after eating meat Time Seen by Provider: 11/10/18 10:15 History Source: Patient Exam Limitations: No Limitations - History of Present Illness Travel History: No Initial Comments: 11/10/18 11:01 38-year-old female presents to ED with complaints of upper abdominal cramping after eating [place] food this morning for breakfast. Patient states food contained pork and states daughter with similar symptoms. Patient denies fever, chills or lower abdominal pain. Patient does state mild nausea and states history of gallstones. Timing/Duration: reports: constant Quality: reports: mild, burning, sharpness Abdominal Pain Onset Location: reports: epigastric Pain Radiation: reports: no radiation Aggravating Factors: improves with: Eating Alleviating Factors: improves with: None Past History - Travel Traveled outside of the country in the last 30 days: No Close contact w/someone who was outside of country & ill: No - Past Medical History Allergies/Adverse Reactions: Allergies Allergy/AdvReac Type Severity Reaction Status Date / Time shellfish derived Allergy Severe Swelling Verified 11/10/18 10:15 Home Medications: Ambulatory Orders Ondansetron [Zofran Odt -] 4 mg SL TID PRN #12 od.tablet 11/10/18 Anemia: No Asthma: Yes Cancer: No Cardiac Disorders: No CVA: No COPD: No CHF: No DVT: No Dementia: No Diabetes: No GI Disorders: Yes (gallstones) Disorders: No HTN: No Hypercholesterolemia: No Liver Disease: No (fatty liver) Seizures: No Thyroid Disease: No - Reproductive History (#): 2 Para: 1 Cervical CA: No Dysfunctional Uterine Bleeding: No Ectopic : No Endometrial CA: No Polycystic Ovaries: No Therapeutic (s) & number: No Tubal Ligation: No - Suicide/Smoking/Psychosocial Hx Smoking Status: No Smoking History: Never smoked Have you smoked in the past 12 months: No Number of Cigarettes Smoked Daily: 0 Information on smoking cessation initiated: No Hx Alcohol Use: No Drug/Substance Use Hx: No Substance Use Type: None Hx Substance Use Treatment: No Patient Lives Alone: No Lives with/in: spouse/SO Review of Systems - Review of Systems Able to Perform ROS?: No Is the patient limited Divehi proficient: No Constitutional: No: Symptoms Reported HEENTM: No: Symptoms Reported Respiratory: No: Symptoms reported Cardiac (ROS): No: Symptoms Reported ABD/GI: Yes: Nausea, Indigestion : No: Symptoms Reported Integumentary: No: Symptoms Reported Neurological: No: Symptoms reported Hematologic/Lymphatic: No: Symptoms Reported *Physical Exam - Vital Signs Last Vital Signs Temp Pulse Resp BP Pulse Ox 98.1 F 73 18 121/73 100 11/10/18 10:13 11/10/18 10:13 11/10/18 10:13 11/10/18 10:13 11/10/18 10:13 - Physical Exam General Appearance: Yes: Nourished, Appropriately Dressed. No: Apparent Distress HEENT: negative: Pale Conjunctivae Respiratory/Chest: positive: Lungs Clear, Normal Breath Sounds, Accessory Muscle Use. negative: Respiratory Distress Gastrointestinal/Abdominal: positive: Soft, Tenderness (epigastric) Musculoskeletal: negative: CVA Tenderness Extremity: positive: Normal Inspection Integumentary: positive: Normal Color, Warm, Moist Neurologic: positive: Motor Strength 5/5 (ambulatory) ED Treatment Course - LABORATORY CBC & Chemistry Diagram: 11/10/18 11:02 11/10/18 11:02 - ADDITIONAL ORDERS Additional order review: Laboratory Results 11/10/18 11/10/18 11:02 11:02 Sodium 137 Potassium 4.4 Chloride 104 Carbon Dioxide 27 Anion Gap 6 L BUN 13 Creatinine 0.7 Est GFR (CKD-EPI)AfAm 125.61 Est GFR (CKD-EPI)NonAf 108.38 Random Glucose 98 Calcium 10.3 H Total Bilirubin 0.4 AST 19 ALT 43 Alkaline Phosphatase 63 Total Protein 7.7 Albumin 4.0 Lipase 251 11/10/18 11:02 RBC 4.69 MCV 90.2 MCHC 33.2 RDW 13.6 MPV 7.9 Neutrophils % 69.1 Lymphocytes % 22.2 D Monocytes % 6.6 Eosinophils % 1.6 Basophils % 0.5 - Medications Given in the ED: ED Medications Discontinued Medications Generic Name Dose Route Start Last Admin Trade Name Freq PRN Reason Stop Dose Admin Al Hydroxide/Mg Hydroxide 30 ml 11/10/18 10:43 11/10/18 10:53 Mylanta Oral Suspension - PO 11/10/18 10:44 30 ml ONCE ONE Administration Ondansetron HCl 4 mg 11/10/18 10:43 11/10/18 10:53 Zofran Odt - SL 11/10/18 10:44 4 mg ONCE ONE Administration Medical Decision Making - Medical Decision Making 11/10/18 11:06 CC: epigastric pain after eating pork this am now with nausea Exam: Epigastric tenderness, vss Plan: labs , zofran and maalox 11/10/18 12:10 Laboratory Tests 11/10/18 11/10/18 11/10/18 11:02 11:02 11:02 WBC 7.8 Hgb 14.1 Hct 42.4 Absolute Neuts (auto) 5.4 Sodium 137 Potassium 4.4 Chloride 104 Carbon Dioxide 27 Anion Gap 6 L BUN 13 Creatinine 0.7 Random Glucose 98 Calcium 10.3 H Total Bilirubin 0.4 AST 19 ALT 43 Alkaline Phosphatase 63 Total Protein 7.7 Albumin 4.0 Lipase 251 Pt will discharged home w/ zofran. *DC/Admit/Observation/Transfer Diagnosis at time of Disposition: Abdominal pain - Discharge Dispostion Disposition: HOME Condition at time of disposition: Improved - Referrals - Patient Instructions Printed Discharge Instructions: DI for Epigastric Pain, [place] Diet Additional Instructions: Please follow-up bland diet for the next 48 hours and advance as tolerated. Please take Zofran as needed for nausea. Return to the ED if symptoms worsen. - Post Discharge Activity Forms/Work/School Notes: Back to Work
[2018-11-10 12:35] VITALS: BP 115/75; PULSE 60; TEMP 98.6
== END 2018-11-10 12:15 | disposition home or self-care (01) ==
LOC: JER 10:09
DX: R10.13 Epigastric pain (principal); Z87.19 Personal history of other diseases of the digestive system
CPT/HCPCS: 36415; 80053; 83690; 85025; 99282-25; Q0162

== ENCOUNTER 2021-03-06 20:05 | Emergency (ER) | payer OTHER ==
[2021-03-06 20:22] VITALS: BP 113/74; PULSE 82; TEMP 97; BMI 37.5
[2021-03-06 21:43] LABS: EPI CELLS 5 /uL (0-25.1); HYALINE CASTS 1 /uL (0-3.1); PH,URINE 5.5 (5.0-8.0); URINE APPEARANCE CLEAR; URINE BACTERIA 90 /uL (0-1359); URINE BILIRUBIN NEGATIVE (NEGATIVE); URINE COLOR YELLOW; URINE GLUCOSE (UA) NEGATIVE (NEGATIVE); URINE KETONE NEGATIVE (NEGATIVE); URINE LEUK ESTERASE TRACE (NEGATIVE); URINE NITRITE NEGATIVE (NEGATIVE); URINE PROTEIN NEGATIVE (NEGATIVE); URINE RBC 11 /uL (0-23.9); URINE UROBILINOGEN 0.2 mg/dL (0.2-1.0); URINE WBC 11 /uL (0-25.8)
[2021-03-06 21:44] LABS: HCG,QUALITATIVE URINE Negative
[2021-03-06 22:15] LABS: BASO % 0.8 % (0-2.0); EOS % 1.2 % (0-4.5); HEMATOCRIT 37.5 % (32.4-45.2); HEMOGLOBIN 13.1 GM/dL (10.7-15.3); LYMPH % 28.5 % (8-40); MCH 30.7 pg (25.7-33.7); MCHC 34.8 g/dl (32.0-36.0); MEAN CELL VOLUME 88.2 fl (80-96); MEAN PLT VOLUME 7.5 fl (7.5-11.1); MONO % 7.6 % (3.8-10.2); NEUT % 61.9 % (42.8-82.8); PLATELET COUNT 429 10^3/uL (134-434); RBC 4.26 M/mm3 (3.60-5.2); WHITE BLOOD COUNT 11.5 K/mm3 (4.0-10.0)
[2021-03-06 22:52] LABS: ALBUMIN 3.7 g/dl (3.4-5.0); BILIRUBIN,TOTAL 0.2 mg/dL (0.2-1); BLOOD UREA NITROGEN 12.6 mg/dL (7-18); CALCIUM 9.1 mg/dL (8.5-10.1); CREATININE 0.9 mg/dL (0.55-1.3); TOT PROT 7.5 g/dl (6.4-8.2)
[2021-03-06] MEDS ORDERED: metroNIDAZOLE 250 MG TABLET PO ONE (22:58)
== END 2021-03-06 23:28 | disposition home or self-care (01) ==
LOC: JER 20:05
DX: N77.1 Vaginitis, vulvitis and vulvovaginitis in diseases classified elsewhere (principal)
CPT/HCPCS: 36415; 80053; 81003; 83690; 84703; 85025; 87077; 87086; 87491; 87591; 99283-25

== ENCOUNTER 2021-04-29 15:04 | Emergency (ER) | payer OTHER ==
[2021-04-29 15:13] VITALS: BP 117/85; PULSE 96; TEMP 99.2; BMI 37.5
[2021-04-29 16:06] LABS: BASO % 2.1 % (0-2.0); EOS % 1.3 % (0-4.5); HEMATOCRIT 39.4 % (32.4-45.2); HEMOGLOBIN 13.7 GM/dl (10.7-15.3); MCH 31.6 pg (25.7-33.7); MCHC 34.8 g/dl (32.0-36.0); MEAN CELL VOLUME 90.7 fl (80-96); MONO % 7.9 % (3.8-10.2); NEUT % 64.7 % (42.8-82.8); PLATELET COUNT 426 10^3/uL (134-434); RBC 4.35 M/mm3 (3.60-5.2); RDW 12.6 % (11.6-15.6); WHITE BLOOD COUNT 9.8 K/mm3 (4.0-10.8)
[2021-04-29 16:11] LABS: HCG,QUALITATIVE URINE Negative
[2021-04-29 16:23] LABS: ALBUMIN 4.1 g/dl (3.4-5.0); BILIRUBIN,TOTAL 0.4 mg/dl (0.2-1); CALCIUM 9.1 mg/dl (8.5-10); CREATININE 0.9 mg/dl (0.55-1.3); TOT PROT 7.7 g/dl (6.4-8.2)
== END 2021-04-29 17:48 | disposition home or self-care (01) ==
LOC: FER 15:04
DX: R11.0 Nausea (principal); R10.9 Unspecified abdominal pain
CPT/HCPCS: 36415; 74176-TC; 80053; 81003; 81015; 83690; 84703; 85025; 87086; 99284-25

== ENCOUNTER 2021-06-29 09:51 | Emergency (ER) | payer OTHER ==
[2021-06-29 10:02] VITALS: BP 131/80; PULSE 119; TEMP 97.8; BMI 37.5
[2021-07-01 01:06] LABS: SARS-CoV-2 NAA Detected (Not Detected)
== END 2021-06-29 11:29 | disposition home or self-care (01) ==
LOC: JER 09:51
DX: R09.81 Nasal congestion (principal); M79.10 Myalgia, unspecified site; R05.1 Acute cough
CPT/HCPCS: 87070; 99283-25; C9803; U0003; U0005

== ENCOUNTER 2021-07-13 10:36 | Emergency (ER) | payer OTHER ==
[2021-07-13 10:49] VITALS: BP 126/84; PULSE 97; TEMP 97.8; BMI 19.8
[2021-07-13 13:14] LABS: EPI CELLS 24 /uL (0-25.1); HYALINE CASTS 1 /uL (0-3.1); PH,URINE 6.5 (5.0-8.0); URINE APPEARANCE CLEAR; URINE BACTERIA 800 /uL (0-1359); URINE BILIRUBIN NEGATIVE (NEGATIVE); URINE COLOR YELLOW; URINE GLUCOSE (UA) NEGATIVE (NEGATIVE); URINE KETONE NEGATIVE (NEGATIVE); URINE LEUK ESTERASE 2+ (NEGATIVE); URINE NITRITE NEGATIVE (NEGATIVE); URINE PROTEIN NEGATIVE (NEGATIVE); URINE RBC 20 /uL (0-23.9); URINE UROBILINOGEN 0.2 mg/dL (0.2-1.0); URINE WBC 113 /uL (0-25.8)
[2021-07-13 13:15] LABS: HCG,QUALITATIVE URINE Negative
[2021-07-13] MEDS ORDERED: FLUCONAZOLE 150 MG TABLET PO ONE ×2 (14:05→14:08)
== END 2021-07-13 14:21 | disposition home or self-care (01) ==
LOC: JERFT 10:36
DX: B37.9 Candidiasis, unspecified (principal); N30.00 Acute cystitis without hematuria
CPT/HCPCS: 36415; 81003; 84703; 87070; 87077; 87086; 87205; 87491; 87591; 99283-25

== ENCOUNTER 2021-07-18 20:40 | Emergency (ER) | payer OTHER ==
[2021-07-18 20:48] VITALS: BMI 19.8
[2021-07-18 21:07] LABS: HCG,QUALITATIVE URINE Negative
[2021-07-18 21:20] LABS: EPITHELIAL CELLS FEW /hpf
[2021-07-18] MEDS ORDERED: PHENAZOPYRIDINE HCL 100 MG TABLET (FP) PO ONE (21:31)
[2021-07-18] MEDS ORDERED: PHENAZOPYRIDINE HCL 100 MG TABLET (FP) ONE (21:34)
[2021-07-18 21:39] VITALS: BP 117/80; PULSE 99; TEMP 98.9
== END 2021-07-18 21:50 | disposition home or self-care (01) ==
LOC: FER 20:40
DX: R30.0 Dysuria (principal)
CPT/HCPCS: 81003; 81015; 84703; 87086; 99283-25

== ENCOUNTER 2022-07-18 21:06 | Emergency (ER) | payer OTHER ==
[2022-07-18 21:33] VITALS: BP 117/72; PULSE 87; RESP 18; TEMP 97.8; BMI 38.9
== END 2022-07-18 23:09 | disposition home or self-care (01) ==
LOC: JER 21:06
DX: U07.1 COVID-19 (principal)
CPT/HCPCS: 0241U-QW; 99283-25

== ENCOUNTER 2023-06-05 12:37 | Emergency (ER) | payer OTHER ==
[2023-06-05 12:55] VITALS: BP 124/79; PULSE 110; RESP 18; TEMP 100; BMI 39.8
[2023-06-05] MEDS ORDERED: ACETAMINOPHEN 500 MG TABLET (FP) PO ONE (13:25)
[2023-06-05] MEDS ORDERED: IBUPROFEN 400 MG TABLET (FP) PO ONE ×2 (13:53→14:08)
== END 2023-06-05 14:31 | disposition home or self-care (01) ==
LOC: JERFT 12:37
DX: R05.9 Cough, unspecified (principal); R09.81 Nasal congestion; M79.10 Myalgia, unspecified site; Z20.822 Contact with and (suspected) exposure to COVID-19
CPT/HCPCS: 0241U-QW; 87651; 99283-25

== ENCOUNTER 2023-09-29 09:14 | Emergency (ER) | payer OTHER ==
[2023-09-29 09:23] VITALS: BP 139/82; PULSE 77; RESP 18; TEMP 97.6; BMI 38.9
== END 2023-09-29 10:00 | disposition home or self-care (01) ==
LOC: JER 09:14 → JERFT 09:14
DX: M79.672 Pain in left foot (principal); S99.922A Unspecified injury of left foot, initial encounter; W11.XXXA Fall on and from ladder, initial encounter
CPT/HCPCS: 73630-TC-LT; 99283-25

== ENCOUNTER 2024-03-01 13:01 | Emergency (ER) | payer OTHER ==
[2024-03-01 13:07] VITALS: BP 109/75; PULSE 86; RESP 20; TEMP 97.7; BMI 38.9
[2024-03-01] MEDS ORDERED: IBUPROFEN 600 MG TABLET (FP) PO ONE (13:14)
[2024-03-01] MEDS: IBUPROFEN 600 MG TABLET (FP) PO ONE (13:14)
== END 2024-03-01 13:37 | disposition home or self-care (01) ==
LOC: JER 13:01 → JERFT 13:01
DX: S66.912A Strain of unspecified muscle, fascia and tendon at wrist and hand level, left hand, initial encounter (principal); X50.1XXA Overexertion from prolonged static or awkward postures, initial encounter
CPT/HCPCS: 73110-TC-LT-FY; 99283-25

== ENCOUNTER 2024-06-15 05:53 | Emergency (ER) | payer OTHER ==
[2024-06-15 06:01] VITALS: BP 122/74; PULSE 78; RESP 18; TEMP 97.9; BMI 38.9
[2024-06-15] MEDS ORDERED: ALBUTEROL SO4 2.5/IPRATROPIUM 0.5 INH SOL 3 ML VIAL.NEB. NEB ONE (07:07)
[2024-06-15] MEDS ORDERED: MAG HYDROX/AL HYDROX/SIMETH 30 ML UNIT-DOSE CUP ONE (08:02)
[2024-06-15] MEDS: MAG HYDROX/AL HYDROX/SIMETH 30 ML UNIT-DOSE CUP PO ONE (08:26)
== END 2024-06-15 08:39 | disposition home or self-care (01) ==
LOC: JER 05:53
DX: R11.0 Nausea (principal); T54.2X1A Toxic effect of corrosive acids and acid-like substances, accidental (unintentional), initial encounter
CPT/HCPCS: 99283-25